=== PATIENT | female | born 1945 | race Caucasian/White ===

== ENCOUNTER 2017-05-20 14:03 | Inpatient (IN) | payer MEDICARE ==
[~2017-05-20] VITALS: Ht 165.1 cm; Wt 63.5 kg
--- NOTE | ~2017-05-20 | DS ---
Discharge Summary [facility] [address] [place]. [address] NAME: DRISS FIELD : 43 STATUS : DIS IN PAT#: [id number] AGE: 71 ADM/REG DATE : 05/20/17 MR#: [id number] REPORT SERV DATE: 05/23/17 DICTATED BY: CORDELL MAXWELL DATE: 05/22/17 REPORT STATUS : Draft TRANSCRIBED BY: MODL DATE: 05/22/17 ADMISSION DATE: 05/20/2017 DISCHARGE DATE: 05/22/2017 HISTORY: This is a 71-year-old female with a history of hypertension, prediabetes, coronary artery disease, and COPD exacerbation, who presented to the hospital with complaint of shortness of breath and coughing and was admitted on the Hospitalist Service for management of COPD exacerbation. For further details, please refer to H and P dictated by Dr. Clayton on 05/20/2017. HOSPITAL COURSE: Upon presentation to the hospital, the patient was admitted under Hospitalist Service with the diagnosis of COPD exacerbation. The patient was started on empiric antibiotic therapy and also placed on high-dose Solu-Medrol. The patient's symptoms significantly improved. However, on presentation, given the acuteness of her symptoms, though there was concern for PE, a CTA was obtained which was negative for PE. Also, during her hospital course, the patient had bilateral lower extremity Doppler ultrasound which was negative for DVT. The patient has responded very well to therapy. Also, during her hospital course, the patient was noted to have persistently be tachycardic. Given her history of coronary artery disease with vessel occlusion, Cardiology was consulted. Per Cardiology evaluation, there was no need for intervention in the inpatient setting as plan was for the patient to follow up in the outpatient setting for further evaluation. The patient also has a history of bladder cancer and is being followed by Urology. There is no plan for intervention at this point, plan has been made for outpatient setting. The patient has responded very well to therapy. She is hemodynamically stable. Son in the room reports that the patient has returned to baseline. Her nausea and vomiting have resolved and she is tolerating p.o. diet. Given her hemodynamic stability and resolution of presenting complaint, the patient will be discharged to home to follow with primary care physician in five to seven days. Plan has been discussed with the patient who voices understanding and is agreeable with this plan. DISCHARGE DIAGNOSES: 1. Chronic obstructive pulmonary disease exacerbation. 2. Hypertension. 3. Coronary artery disease with an atherosclerotic cardiovascular disease score of 36.9, indicating statin therapy. 4. Leukocytosis. 5. Nausea, vomiting. 6. Prediabetes. 7. Tachycardia. 8. Tobacco abuse. DISCHARGE MEDICATIONS: 1. Aspirin 81 mg p.o. daily. 2. Atorvastatin 40 mg p.o. daily. 3. Lisinopril 10 mg p.o. daily. 4. Prednisone 40 mg p.o. x5 days. Discharge Summary [facility] [id number] [place]. [address] NAME: DRISS FIELD : 43 STATUS : DIS IN PAT#: [id number] AGE: 71 ADM/REG DATE : 05/20/17 MR#: [id number] REPORT SERV DATE: 05/23/17 DICTATED BY: CORDELL MAXWELL DATE: 05/22/17 REPORT STATUS : Draft TRANSCRIBED BY: SVITLANA DATE: 05/22/17 5. Multivitamin tablet. 6. Metoprolol 25 mg p.o. twice a day. 7. Doxycycline 100 mg p.o. twice a day for five days. DISCHARGE EXAM: GENERAL: The patient lying in bed, in no acute distress. Appears stated age. HEENT: Normocephalic and atraumatic. Extraocular motors intact. Oral mucosa moist. Anicteric sclerae. NECK: Trachea midline and symmetric. No JVD noted. CHEST: Nontender to palpation. Equal chest rise. The patient observed breathing without use of accessory muscles. LUNGS: Positive rhonchi and rales noted. No wheezing present. Decreased breath sounds globally. ABDOMEN: Positive bowel sounds. Nontender. Nondistended. EXTREMITIES: No cyanosis, no clubbing, no edema. NEURO: Alert and oriented x3. No focal deficits appreciated. IMAGIN. CTA of the chest, impression: No CTA evidence of pulmonary embolus. 2. No active pulmonary disease. Old calcified granulomatous disease. 3. Moderate-sized hiatal hernia. 4. Postsurgical changes left upper quadrant abdomen. 5. CT abdomen and pelvis, impression:. a. No acute abdominal or pelvic pathology. b. There is a 1.8 cm diameter filling defect along the left posterior bladder base. c. Recommend Urology followup to exclude bladder malignancy. d. Bilateral low-density adrenal adenomas, largest on the left 2.9 cm. e. Stable postsurgical changes, left upper quadrant abdomen. f. Bilateral common iliac artery stenosis and changes of prior hysterectomy. g. Moderate-sized hiatal hernia. DISPOSITION: The patient will be discharged to home. ACTIVITY: As tolerated. DIET: Low-salt cardiac diet. DISCHARGE INSTRUCTIONS: The patient to follow up with Urology for further workup of bladder filling defect concerning for a bladder malignancy. The patient also to follow with primary care physician for monitoring of adrenal adenoma noted on CT scan. Greater than 30 minutes was spent discharging the patient. RASHEEDA/SVITLANA Discharge Summary [address] [address] NAME: DRISS FIELD : 43 STATUS : DIS IN PAT#: [id number] AGE: 71 ADM/REG DATE : 05/20/17 MR#: [id number] REPORT SERV DATE: 05/23/17 DICTATED BY: CORDELL MAXWELL DATE: 05/22/17 REPORT STATUS : Draft TRANSCRIBED BY: SVITLANA DATE: 05/22/17 Cordell Maxwell MD / [id number] CC: MD Giovanni Michel MD
--- NOTE | ~2017-05-20 | CN ---
Consultation Report [facility] [address] [place]. [address] NAME: DRISS FIELD : 43 STATUS : ADM IN PAT#: [id number] AGE: 71 ADM/REG DATE : 05/20/17 MR#: [id number] REPORT SERV DATE: 05/21/17 DICTATED BY: Beka DIAZ DATE: 05/21/17 REPORT STATUS : Draft TRANSCRIBED BY: MODL DATE: 05/21/17 DATE OF CONSULTATION: 05/21/2017 CHIEF COMPLAINT: Bladder filling defect. HISTORY OF PRESENT ILLNESS: Ms. Field is a pleasant 71-year-old white female, admitted on 05/20 with shortness of breath, nausea, and vomiting, and she was felt to have COPD exacerbation. She is a long-term smoker and also has coronary artery disease as well as peripheral vascular disease. A CT of the abdomen and pelvis which obtained and showed a 1.8 cm filling defect along the posterior bladder base consistent with a possible tumor. PAST MEDICAL HISTORY: 1. Right carotid artery stenosis, pending surgery. 2. Peripheral vascular disease, status post bilateral lower extremity stents. 3. Breast cancer, status post lumpectomy. 4. COPD. PAST SURGICAL HISTORY: 1. Right breast lumpectomy. 2. Peripheral vascular procedures. 3. Cholecystectomy. 4. Tonsillectomy. HOME MEDICATIONS: Acetaminophen, daily aspirin, lisinopril, multivitamins. ALLERGIES: NO KNOWN DRUG ALLERGIES. REVIEW OF SYSTEMS: A full 12-point review of systems negative except as noted above. FAMILY HISTORY: Negative for urologic disease. PHYSICAL EXAMINATION: GENERAL: A thin elderly white female, afebrile with normal vital signs, in no respiratory distress. She is on oxygen currently. HEENT: Normocephalic, atraumatic. HEART: Regular rate and rhythm. ABDOMEN: Flat, nontender, nondistended. No CVA tenderness. No suprapubic distention. EXTREMITIES: Show no edema. The patient is ambulatory. The patient has normal mood and affect. PERTINENT LABORATORY: White count 31953, creatinine 0.68. Urinalysis not obtained. IMPRESSION: 1. Multiple medical problems including chronic obstructive pulmonary disease, peripheral Consultation Report [facility] [address] [place]. [address] NAME: DRISS FIELD : 43 STATUS : ADM IN PAT#: [id number] AGE: 71 ADM/REG DATE : 05/20/17 MR#: [id number] REPORT SERV DATE: 05/21/17 DICTATED BY: Beka DIAZ DATE: 05/21/17 REPORT STATUS : Draft TRANSCRIBED BY: MODL DATE: 05/21/17 vascular disease, and probable coronary artery disease. 2. Bladder filling defect, currently asymptomatic. PLAN: I suspect this is a bladder tumor consistent with transitional cell carcinoma. Since she is asymptomatic, I think I would pursue her medical workup first. I think that she has some pending carotid artery surgery if cleared by Cardiology. My plan would be to perform an outpatient cysto and a surgery as needed. Would need cardiac clearance off anticoagulants, etc. I discussed this with her family, and we will follow her while she is here with plans for outpatient evaluation. JPD/SVITLANA Beka Diaz M.D. / [id number] CC: Ghanshyam Eaton M.D. MD Hernán Castillo M.D. Gregory Tomas M.D., Ph.D, F.A.C.C.
--- NOTE | ~2017-05-20 | CN ---
Consultation Report [facility] [address] [place]. [address] NAME: DRISS FIELD : 43 STATUS : ADM IN PAT#: [id number] AGE: 71 ADM/REG DATE : 05/20/17 MR#: [id number] REPORT SERV DATE: 05/21/17 DICTATED BY: GREGORY AUGUSTE DATE: 05/21/17 REPORT STATUS : Draft TRANSCRIBED BY: MODL DATE: 05/21/17 CARDIOLOGY CONSULTATION DATE OF CONSULTATION: 05/21/2017 REASON FOR CONSULTATION: Abnormal troponin. HISTORY OF PRESENT ILLNESS: Ms. Field is a 71-year-old woman I saw in the office for the first time a few weeks ago for preoperative evaluation for carotid surgery. She has a history of peripheral vascular disease and ongoing smoking. We evaluated her with a stress test and echocardiogram, both of which were fairly unremarkable. She presented to the hospital with shortness of breath, nausea, and vomiting. She was actively wheezing and had a productive cough. She had some right-sided chest pain, but no exertional symptoms. This sound typical for angina. She has no lower extremity edema. No palpitations or syncope. REVIEW OF SYSTEMS: As per the history of present illness. Ten other systems are negative. No fevers or chills. Positive nausea, vomiting, and some report of diarrhea. FAMILY HISTORY: Positive for heart disease later in life. SOCIAL HISTORY: Ongoing tobacco use. ALLERGIES: NO KNOWN DRUG ALLERGIES. HOME MEDICATIONS: Tylenol, aspirin 81 daily, lisinopril 10 daily, and multivitamin. PHYSICAL EXAMINATION: VITAL SIGNS: Heart rate 85, blood pressure 144/82. GENERAL: The patient is pleasant, white female, in no apparent distress. HEENT: Conjunctivae are anicteric, no xanthelasma, lips without cyanosis. NECK: Supple. Jugular venous pressure is not elevated. Carotids +2 without bruit. LUNGS: Expiratory wheeze bilaterally. No rales or rhonchi. CARDIOVASCULAR: Regular rate and rhythm. Normal S1 and S2 with somewhat distant heart sounds without S3. No murmur or rub. PMI is nondisplaced. ABDOMEN: Soft, nontender, nondistended, with normal bowel sounds. No hepatomegaly. EXTREMITIES: No edema. NEURO/PSYCH: Alert and oriented to person, place and time. No obvious neurologic deficits. Mood and affect normal. LABORATORY DATA: Review of the EKG shows variable left bundle-branch block with occasional PVCs. No diagnostic ST-T wave changes. Labs reviewed, borderline troponin elevation from 0.06, now down to 0.03. CT scan shows no pulmonary edema. She does have mild elevation of her amylase and lipase. Consultation Report [facility] [address] [place]. [address] NAME: DRISS FIELD : 43 STATUS : ADM IN PAT#: [id number] AGE: 71 ADM/REG DATE : 05/20/17 MR#: [id number] REPORT SERV DATE: 05/21/17 DICTATED BY: GREGORY AUGUSTE DATE: 05/21/17 REPORT STATUS : Draft TRANSCRIBED BY: SVITLANA DATE: 05/21/17 IMPRESSION: 1. Chronic obstructive pulmonary disease exacerbation with possible bronchitis. 2. Peripheral vascular disease. 3. Insignificant troponin elevation. No sign of myocardial infarction. 4. Intermittent left bundle-branch block is suspected. 5. Recent echocardiogram with stress test negative. 6. Tachycardia secondary to underlying illness. RECOMMENDATIONS: Ms. Field is clinically stable from a cardiac standpoint, mild tachycardia explained by her underlying respiratory symptoms, but no signs of active ischemia. I agree with the addition of beta elizabeth. I will add a statin, which I was planning on doing on an outpatient basis. I would continue treating her pulmonary process as you are doing and we are available as needed. I will otherwise sign off and see her on an outpatient basis. WO/SVITLANA Gregory Auguste M.D., Ph.D, F.A.C.C. / [id number] CC: Ghanshyam Eaton M.D. Giovanni Styles MD
--- NOTE | ~2017-05-20 | HP ---
History And Physical [facility] [address] [address] [place]. [address] NAME: DRISS FIELD : 43 STATUS : REG ER PAT#: [id number] AGE: 71 ADM/REG DATE : 05/20/17 MR#: [id number] REPORT SERV DATE: 05/20/17 DICTATED BY: MILLY CARLOS DATE: 05/20/17 REPORT STATUS : Draft TRANSCRIBED BY: MODL DATE: 05/20/17 DATE OF ADMISSION: 05/20/2017 HISTORY OF PRESENT ILLNESS: This is a 71-year-old female, who presented to [facility] Emergency Room with a complaint of coughing and shortness of breath according to family. It was one day duration as well as nausea and vomiting, although the patient's son reported that she had some shortness of breath on walking probably since January. The patient had episodes of vomiting in the ER without any complaint of abdominal pain. She is short of breath. She is weak. She is coughing. She is unable to lie flat. There is wheezing audible even from distance. After she vomited, she became tachycardic as well. She denies any chest pain. Denies any abdominal pain. No fever. No rash. No headaches. REVIEW OF SYSTEMS: All 14-point review of systems done and negative except what is stated in the history of present illness. PAST MEDICAL HISTORY: Known for history of blocked right carotid artery and also blocked artery in the right chest according to the patient, watched by Dr. Hernán Richmond. History of peripheral vascular disease with history of bilateral leg stent placement by Dr. Richmond. History of breast cancer in 2006 status post right lumpectomy. The patient denies any history of coronary artery disease, but she said that she was referred to Dr. Tomas for evaluation of her blocked carotid and also for blocked artery in the chest, unclear what type of artery, was it subclavian or any other artery. She had an echocardiogram done in 04/25/2017, which shows ejection fraction of 50% with normal left ventricular size and low normal systolic function with mild diastolic dysfunction, borderline normal right ventricular size and normal systolic function, aortic valve sclerosis without stenosis and trace pericardial effusion. The patient denies any history of COPD, but she is a long-term smoker all her life, and she is still smoking 3/4th pack a day. She denies any alcohol. No recreational drug use. She denies any heart attacks. No strokes. No diabetes. She has chronically stuffed nose and muffled voice, which is from her young age. The patient's son reported that when they did tonsillectomy at a young age, she had more tissue removed than necessary that is why her voice is muffled like that, as well as she is hard of hearing and for this reason, she has difficulty to understand things. PAST SURGICAL HISTORY: Includes right lumpectomy and also according to the patient, she had cholecystectomy, tonsillectomy. Her primary care physician is Dr. Styles. She also has hypothyroidism and also, she takes blood pressure medicine. HOME MEDICATIONS: Include Tylenol 325 daily p.r.n., aspirin 81 mg daily, lisinopril 10 mg daily, and multivitamins daily. History And Physical [address] [place]. [address] NAME: DRISS FIELD : 43 STATUS : REG ER PAT#: [id number] AGE: 71 ADM/REG DATE : 05/20/17 MR#: [id number] REPORT SERV DATE: 05/20/17 DICTATED BY: MILLY CARLOS DATE: 05/20/17 REPORT STATUS : Draft TRANSCRIBED BY: SVITLANA DATE: 05/20/17 FAMILY HISTORY: Mother had cancer and father had heart disease. PHYSICAL EXAMINATION: GENERAL: Thin, female, not in acute distress unless when she starts to vomit, she becomes tachycardic. VITAL SIGNS: Blood pressure 139/70, temperature 98.9, heart rate 109 and then when she was vomiting went to 120s, respirations 16, oxygen saturation, according to records, was 94% on room air but currently, she is on 2 L of oxygen, is 94%. HEENT: Head atraumatic, normocephalic. Conjunctivae clear. Pupils are equal and reactive to light and accommodation. Extraocular muscles are intact. NECK: Supple. Trachea is midline. No supraclavicular or cervical lymphadenopathy. LUNGS: Multiple anterior and posterior expiratory wheezing with slightly increased respiratory effort, CARDIOVASCULAR SYSTEM: Regular rate and rhythm. Tachycardic. ABDOMEN: Soft, nontender, and nondistended. Positive normoactive bowel sounds. No organomegaly. EXTREMITIES: No clubbing, cyanosis, or edema. SKIN: Normal color and turgor. PSYCHIATRIC: Normal mood and affect. NEUROLOGIC: Awake, alert, and oriented in time, place, and person. She is hard of hearing. LABORATORY RESULTS: White count 15,000, hemoglobin 15.1, hematocrit 44.9, and a platelet count 294. PTT 36.4, PT 13.4, INR is 1. Her sodium 140, potassium 4.1, chloride 103, carbon dioxide 32, BUN 9, creatinine 0.68, blood sugar 148, magnesium 1.9, and troponin 0.05. BNP was 247.5, troponin 0.06. Lactic acid level is ordered and it is 1.9. Her lipase and hepatic panel as well are ordered but currently pending. Chest x-ray showed no evidence of acute cardiopulmonary process. Initial EKG done at 1422 hours showed sinus tachycardia with frequent premature ventricular contractions and left bundle branch block and a heart rate 107. The 2nd EKG when she was vomiting showed again it was a sinus tachycardia with some more regular rhythm with rate of 127 with right bundle branch block. ASSESSMENT AND PLAN: This is a 71-year-old female with a history of peripheral vascular disease status post bilateral stent placement by Dr. Richmond, status post right carotid artery occlusion presented with: 1. Chronic obstructive pulmonary disease exacerbation with severe wheezing and cough. 2. Leukocytosis. 3. Nausea and vomiting of unclear etiology. 4. Tachycardia likely secondary to nausea and vomiting. We will admit the patient to cardiac telemetry bed. For her shortness of breath, the patient was already given Solu- Medrol in the emergency room by Dr. Maguire, as well as she was started on antibiotics Rocephin and azithromycin after blood cultures were drawn. 5. Nausea and vomiting. Question what is the etiology of this. There is no abdominal tenderness. I just ordered serum amylase, lipase, AST, ALT, and urinalysis. The History And Physical [address] [address] NAME: DRISS FIELD : 43 STATUS : REG ER PAT#: [id number] AGE: 71 ADM/REG DATE : 05/20/17 MR#: [id number] REPORT SERV DATE: 05/20/17 DICTATED BY: MILLY CARLOS DATE: 05/20/17 REPORT STATUS : Draft TRANSCRIBED BY: SVITLANA DATE: 05/20/17 patient is already given Rocephin for her chronic obstructive pulmonary disease and possible pneumonitis. She is very congested and according to nurse, she was hypoxemic on 2 L. They said her oxygen saturation was 96%, although it was documented that it was on room air that she looks very wheezy. 6. Sinus tachycardia with some wide complex secondary to left bundle branch block. We will monitor it closely. The patient's blood pressure in the stable range. 7. Minimally elevated troponin most likely secondary to demand ischemia from stress of nausea and vomiting and shortness of breath. We will monitor troponins as well as continue her aspirin, and we will also do echocardiogram and consult data review specialist. In the same time, I will put the patient on a low dose metoprolol. 8. We will monitor the patient's electrolytes and will recheck her serum amylase and lipase in a.m. In the same time, we will put her on a clear liquids if she will tolerate, and I also ordered CT abdomen and pelvis to evaluate her abdomen. My partner will see this patient starting tomorrow morning. MG/MODGeovany Milly Carlos M.D. / [id number] CC: Giovanni Styles MD
[~2017-05-20 14:03] MED LIST: FOSAMAX70 MG PO; MULTIVITAMI1 PO; OS500+D PO
[2017-05-20 15:24] LABS: BASOPHILS 0.3 %; BASOPHILS ABSOLUTE 0.05 10/3/uL (0.0-0.16); EOSINOPHILS 0.8 %; EOSINOPHILS ABSOLUTE 0.12 10/3/uL (0.0-0.53); ER CBC TAT 0 Hrs 08 Mins; HEMATOCRIT 44.9 % (36.0-48.0); HEMOGLOBIN 15.1 g/dL (12.0-16.0); IMMATURE GRANULOCYTES 0.3 %; IMMATURE GRANULOCYTES ABSOLUTE 0.05 10/3/uL (0.0-0.11); LYMPHOCYTES 6.8 %; LYMPHOCYTES ABSOLUTE 1.02 10/3/uL (0.67-4.30); MANUAL DIFF NO %; MEAN CORPUS HGB CONC 33.6 g/dL (32.0-36.0); MEAN CORPUSCULAR HEMOGLOB 28.1 pg (26.0-34.0); MEAN CORPUSCULAR VOLUME 83.5 fL (80-100); MEAN PLATELET VOLUME 9.8 fL (9.2-13.0); MONOCYTES 4.3 %; MONOCYTES ABSOLUTE 0.64 10/3/uL (0.21-1.20); NEUTROPHILS 87.5 %; NEUTROPHILS ABSOLUTE 13.11 10/3/uL (2.02-8.40); PLATELET COUNT 294 10/3/uL (150-400); RBC DISTRIBUTION WIDTH 15.5 % (12.0-16.0); RED CELL COUNT 5.38 10/6/uL (4.0-5.6)
[2017-05-20 15:29] LABS: PARTIAL THROMBO TIME 36.4 SEC (22.5-37.2); PROTIME (NOT ORD) 13.4 SEC (12.0-14.5)
[2017-05-20 15:42] LABS: BUN (BLOOD UREA NITROGEN) 9 MG/DL (6-23); CALCIUM, SERUM 9.3 MG/DL (8.5-10.4); CHLORIDE, SERUM 103 MMOL/L (96-112); CO2 (CARBON DIOXIDE) 32 MMOL/L (24-34); CREATININE 0.68 MG/DL (0.55-1.02); GFR AFRICAN AMERICAN 101 ML/MIN (>=60); GFR NON AFRICAN AMERICAN 87 ML/MIN (>=60); GLUCOSE, SERUM 148 MG/DL (60-99); POTASSIUM, SERUM 4.1 MMOL/L (3.5-5.3); SODIUM, SERUM 140 MMOL/L (135-148)
[2017-05-20 15:44] LABS: CHEST PAIN PROFILE TAT 0 Hrs 28 Mins; TROPONIN I 0.06 NG/ML (<0.05)
[2017-05-20] MEDS ORDERED: PRIN10 PO (17:13)
[2017-05-20] MEDS ORDERED: ASAB PO (17:14)
[2017-05-20] MEDS ORDERED: LIPITOR10 PO (17:14)
[2017-05-20] MEDS ORDERED: MULTIPLE VIT PO (17:15)
[2017-05-20] MEDS ORDERED: T PO (17:16)
[2017-05-20 17:26] LABS: LACTATE 1.9 MMOL/L (0.3-2.4)
[2017-05-20 17:27] LABS: ALLENS TEST Pos; BE (BASE EXCESS) 2.1 MEQ/L (0 +/- 2.5); CARBOXYHEMOGLOBIN 2.3 % (0-3); HEMOBLOGIN CONTENT 15.7 G/DL (12-16); INSTRUMENT SERIAL # 8087; METHEMOGLOBIN 0.3 % (0-3); O2 CONTENT 20.1 VOL% (18-24); PCO2 (CO2 TENSION) 43 MMHG (35-45); PO2 (O2 TENSION) 65 MMHG (79-93); SAMPLE Arterial; pH 7.42 (7.37-7.43)
[2017-05-20 18:05] LABS: WBC (NOT ORDERED) (RFLEX) 0 (0-5)
[2017-05-20 18:05] LABS: ALBUMIN 3.6 G/DL (3.5-5.0); TOTAL BILIRUBIN 0.5 MG/DL (0-1.2); TOTAL PROTEIN 7.7 G/DL (6.0-8.5)
[2017-05-20 18:07] LABS: DIRECT BILIRUBIN 0.1 MG/DL (0.0-0.4); INDIRECT BILIRUBIN(NOT ORDER) 0.4 MG/DL (0.1-0.9)
[2017-05-20 18:17] LABS: ASCORBIC ACID (UR NOT ORDER) NEG (NEG); BILIRUBIN, URINE NEGATIVE (NEG); ER URINALYSIS TAT 0 Hrs 12 Mins; KETONE, URINE TRACE MG/DL (NEG); LEUKOCYTE ESTERASE(NOT OR NEG (NEG); NITRITE (URINE) NEG (NEG)
[2017-05-20 23:33] LABS: DIRECT BILIRUBIN 0.1 MG/DL (0.0-0.4); INDIRECT BILIRUBIN(NOT ORDER) 0.3 MG/DL (0.1-0.9); TOTAL BILIRUBIN 0.4 MG/DL (0-1.2); ULTRASENSITIVE TSH 0.153 MCIU/ML (0.358-3.740)
[2017-05-20 23:38] LABS: TROPONIN I 0.06 NG/ML (<0.05)
[2017-05-21 06:09] LABS: BASOPHILS 0 %; EOSINOPHILS 0 %; HEMATOCRIT 39.9 % (36.0-48.0); HEMOGLOBIN 13.7 g/dL (12.0-16.0); IMMATURE GRANULOCYTES 0.1 %; IMMATURE GRANULOCYTES ABSOLUTE 0.01 10/3/uL (0.0-0.11); LYMPHOCYTES 10.5 %; LYMPHOCYTES ABSOLUTE 0.75 10/3/uL (0.67-4.30); MANUAL DIFF NO %; MEAN CORPUS HGB CONC 34.3 g/dL (32.0-36.0); MEAN CORPUSCULAR HEMOGLOB 28.1 pg (26.0-34.0); MEAN CORPUSCULAR VOLUME 81.9 fL (80-100); MEAN PLATELET VOLUME 10.1 fL (9.2-13.0); MONOCYTES 0.7 %; MONOCYTES ABSOLUTE 0.05 10/3/uL (0.21-1.20); NEUTROPHILS 88.7 %; NEUTROPHILS ABSOLUTE 6.31 10/3/uL (2.02-8.40); PLATELET COUNT 261 10/3/uL (150-400); RBC DISTRIBUTION WIDTH 15.4 % (12.0-16.0); RED CELL COUNT 4.87 10/6/uL (4.0-5.6); WHITE BLOOD CELLS 7.1 10/3/uL (4.5-10.5)
[2017-05-21 06:31] LABS: A/G RATIO 0.9 (0.7-1.9); ALBUMIN 3.4 G/DL (3.5-5.0); ALKALINE PHOSPHATASE 121 U/L (45-117); BUN (BLOOD UREA NITROGEN) 12 MG/DL (6-23); CALCIUM, SERUM 9.3 MG/DL (8.5-10.4); CHLORIDE, SERUM 105 MMOL/L (96-112); CO2 (CARBON DIOXIDE) 27 MMOL/L (24-34); CREATININE 0.61 MG/DL (0.55-1.02); GFR AFRICAN AMERICAN 104 ML/MIN (>=60); GFR NON AFRICAN AMERICAN 90 ML/MIN (>=60); GLOBULIN 3.9 G/DL (2.5-4.1); GLUCOSE, SERUM 176 MG/DL (60-99); POTASSIUM, SERUM 3.5 MMOL/L (3.5-5.3); SGOT(AST) 15 U/L (5-40); SGPT(ALT) 19 U/L (5-65); SODIUM, SERUM 140 MMOL/L (135-148); TOTAL BILIRUBIN 0.5 MG/DL (0-1.2); TOTAL PROTEIN 7.3 G/DL (6.0-8.5); TROPONIN I 0.03 NG/ML (<0.05)
[2017-05-22 05:59] LABS: HEMATOCRIT 40.2 % (36.0-48.0); HEMOGLOBIN 13.5 g/dL (12.0-16.0); MEAN CORPUS HGB CONC 33.6 g/dL (32.0-36.0); MEAN CORPUSCULAR HEMOGLOB 27.8 pg (26.0-34.0); MEAN CORPUSCULAR VOLUME 82.9 fL (80-100); MEAN PLATELET VOLUME 10.5 fL (9.2-13.0); PLATELET COUNT 281 10/3/uL (150-400); RED CELL COUNT 4.85 10/6/uL (4.0-5.6)
[2017-05-22 06:01] LABS: MANUAL DIFF YES %; WHITE BLOOD CELLS 24.1 10/3/uL (4.5-10.5)
[2017-05-22 06:13] LABS: A/G RATIO 0.9 (0.7-1.9); ALBUMIN 3.2 G/DL (3.5-5.0); ALKALINE PHOSPHATASE 115 U/L (45-117); CALCIUM, SERUM 9.5 MG/DL (8.5-10.4); CHLORIDE, SERUM 103 MMOL/L (96-112); CHOLESTEROL 198 MG/DL (< 200); CO2 (CARBON DIOXIDE) 29 MMOL/L (24-34); CREATININE 0.58 MG/DL (0.55-1.02); GFR AFRICAN AMERICAN 106 ML/MIN (>=60); GFR NON AFRICAN AMERICAN 91 ML/MIN (>=60); GLOBULIN 3.7 G/DL (2.5-4.1); GLUCOSE, SERUM 154 MG/DL (60-99); HDL CHOLESTEROL 40 MG/DL (> 49); LDL CHOLESTEROL 126 MG/DL (< 130); NON-HDL CHOLESTEROL 158 MG/DL (< 160); SGPT(ALT) 24 U/L (5-65); SODIUM, SERUM 138 MMOL/L (135-148); TOTAL BILIRUBIN 0.4 MG/DL (0-1.2); TOTAL PROTEIN 6.9 G/DL (6.0-8.5); TRIGLYCERIDE 161 MG/DL (< 150)
[2017-05-22 06:14] LABS: BUN (BLOOD UREA NITROGEN) 17 MG/DL (6-23); POTASSIUM, SERUM 4.1 MMOL/L (3.5-5.3); SGOT(AST) 45 U/L (5-40)
[2017-05-22 06:17] LABS: BAND NEUTROPHILS 17 %; LYMPHOCYTES 5 %; LYMPHOCYTES ABSOLUTE (CALC) 1.21 10/3/uL (0.67-4.30); MONOCYTES 2 %; MONOCYTES ABSOLUTE (CALC) 0.48 10/3/uL (0.21-1.20); NEUTROPHILS ABSOLUTE (CALC) 22.41 10/3/uL (2.02-8.40); PLATELET ESTIMATE ADQ (ADEQUATE); RBC MORPHOLOGY NORM (NORMAL); SEGMENTED NEUTROPHIL (0) 76 %; TOTAL NUCLEATED CELLS 100
[2017-05-22] MEDS ORDERED: LIPITOR40 PO (11:08)
[2017-05-22] MEDS ORDERED: LOP25 PO (11:11)
[2017-05-22] MEDS ORDERED: DORYX100 MG PO (11:11)
[2017-05-22] MEDS ORDERED: P10 PO (11:12)
== END 2017-05-22 13:07 | disposition home or self-care (01) | DRG 191 ==
LOC: ENRESERVTM → ENRESERVDT → ENRESERV → ER 14:03 → 2SO 18:51
PROVIDERS: Emergency Medicine; Hospitalist
DX: J44.1 Chronic obstructive pulmonary disease with (acute) exacerbation (principal); I24.8 Other forms of acute ischemic heart disease; I45.2 Bifascicular block; I35.8 Other nonrheumatic aortic valve disorders; I25.10 Atherosclerotic heart disease of native coronary artery without angina pectoris; E03.9 Hypothyroidism, unspecified; F17.210 Nicotine dependence, cigarettes, uncomplicated; I73.9 Peripheral vascular disease, unspecified; R00.0 Tachycardia, unspecified; I49.3 Ventricular premature depolarization; I10 Essential (primary) hypertension; R11.2 Nausea with vomiting, unspecified; K44.9 Diaphragmatic hernia without obstruction or gangrene; J84.10 Pulmonary fibrosis, unspecified; D35.02 Benign neoplasm of left adrenal gland; N32.9 Bladder disorder, unspecified; I77.1 Stricture of artery; Z85.3 Personal history of malignant neoplasm of breast; Z98.890 Other specified postprocedural states; Z80.9 Family history of malignant neoplasm, unspecified; Z82.49 Family history of ischemic heart disease and other diseases of the circulatory system; Z85.51 Personal history of malignant neoplasm of bladder
CPT/HCPCS: 36600; 71020; 71275; 74176; 80048; 80053; 80061; 80076; 81001; 82150; 82247; 82248; 82805; 83036; 83605; 83690; 83735; 83880; 84145; 84443; 84484; 85025; 85610; 85730; 87040; 93005; 93970; 94640; 94667; 96374; 96375; 99285; A9270-GY; J0456; J2920; J2930; Q9967